=== PATIENT | male | born 1940 | race Caucasian/White ===

== ENCOUNTER 2018-01-17 00:12 | Emergency (ER) | payer MEDICARE, BC ==
[~2018-01-17] VITALS: Ht 175.3 cm; Wt 80.0 kg
[~2018-01-17 00:12] MED LIST: AMLO2.5T PO; APIX5TAB PO; CLOP75TA PO; GABA100C4 PO; LANTUS2P SQ; LISI-515 PO; METF1000 PO; NAME5TAB2 PO; PRAV40TA2 PO; VITA1000 PO; cholesterol med; htn med
[2018-01-17 00:18] VITALS: BP 185/85; PULSE 72; RESP 16; TEMP 98.3; O2SAT 98
[2018-01-17] MEDS ORDERED: diphenhydrAMINE HCL 50 MG/ML VIAL IV PUSH ONE (01:15)
[2018-01-17] MEDS ORDERED: PROCHLORPERAZINE INJ 10 MG/2 ML VIAL IV PUSH ONE (01:15)
--- NOTE | 2018-01-17 03:22 | PD ---
HPI . Headache Chief Complaint: Headache Time Seen by Provider: 01:15 Travel History International Travel<30 days: No Contact w/Intl Traveler<30days: No Traveled to known affect area: No History of Present Illness HPI This patient is brought in by his with chief complaint of headache. The patient has dementia so the history is obtained from his . Onset of headaches was 2 days ago. She treated him at home with an OTC analgesic with relief of this headache yesterday. However, the headache recurred today. She has not given him any further medication. She states that he heard that he needed to come to the hospital because of his headache. She has not noticed any unusual signs or symptoms such as fever, vomiting, focal neurological deficits. She states that he complains that his headache is severe. There have been no obvious modifying factors except that it was relieved yesterday by an OTC analgesic. PFSH Past Medical History Atrial Fibrillation: Yes Anxiety: Yes Depression: Yes Heart Rhythm Problems: Yes Cardiovascular Problems: Yes High Cholesterol: Yes Coronary Artery Disease: Yes Dementia: Yes Diabetes: Yes Diminished Hearing: Yes Hypertension: Yes Neurologic: Yes Triglycerides - High: Yes Past Surgical History Cardiac Surgery: Yes Coronary Artery Bypass Graft: Yes Social History Alcohol Use: No Tobacco Use: No Substance Use: No Allergies-Medications (Allergen,Severity, Reaction): Coded Allergies: sulfamethoxazole (Verified Allergy, Unknown, 01/17/18) trimethoprim (Verified Allergy, Unknown, 01/17/18) Reported Meds & Prescriptions Reported Meds & Active Scripts Active Namenda (Memantine) 5 Mg Tab 5 Mg PO BID 30 Days Reported Lantus Inj (Insulin Glargine) 1,000 Unit/10 Ml Vial 35 Units SQ HS Pravastatin 40 Mg Tab 40 Mg PO DAILY Amlodipine (Amlodipine Besylate) 2.5 Mg Tab 2.5 Mg PO DAILY Lisinopril 20 Mg Tab 20 Mg PO DAILY Eliquis (Apixaban) 5 Mg Tab 5 Mg PO BID Vitamin D-1000 (Cholecalciferol) 1,000 Unit Tab 1,000 Units PO DAILY Clopidogrel (Clopidogrel Bisulfate) 75 Mg Tab 75 Mg PO DAILY Gabapentin 100 Mg Cap 300 Mg PO BID Metformin (Metformin HCl) 1,000 Mg Tab 1,000 Mg PO BIDPC Review of Systems Except as stated in HPI: all other systems reviewed are Neg Physical Exam Exam Limitations: Poor Historian Narrative GENERAL: Elderly man who does not appear to be in any acute distress. SKIN: warm/dry. HEAD: Normocephalic. Atraumatic. Nontender. EYES: Pupils equal and round. No scleral icterus. No injection or drainage. ENT: No nasal bleeding or discharge. Mucous membranes pink and moist. NECK: Trachea midline. Full range of motion without pain.. RESPIRATORY: No accessory muscle use. MUSCULOSKELETAL: No obvious deformities. NEUROLOGICAL: Awake and alert. No obvious cranial nerve deficits. Motor grossly within normal limits. Normal speech. Demented. PSYCHIATRIC: Appropriate mood and affect. Data Data Last Documented VS Vital Signs Date Time Temp Pulse Resp B/P (MAP) Pulse Ox O2 Delivery O2 Flow Rate FiO2 01/17/18 01:19 18 98 01/17/18 00:18 98.3 72 185/85 (118) Room Air Orders Orders ^ Saline Lock (01/17/18 01:15) Diphenhydramine Inj (Benadryl Inj) (01/17/18 01:15) Prochlorperazine Inj (Compazine Inj) (01/17/18 01:15) Ct Brain W/O Iv Contrast(Rout) (01/17/18 03:13) MDM Medical Decision Making Medical Screen Exam Complete: Yes Emergency Medical Condition: Yes Medical Record Reviewed: Yes (patient was admitted here in August and strokelike symptoms. He had a thorough evaluation time and no etiology for his symptoms was found. He was eventually discharged to home.) Differential Diagnosis Differential diagnosis of headache includes but is not limited to migraine, muscle contraction headache, brain tumor, brain bleed Narrative Course This is an elderly, demented patient who is brought in by his with the chief complaint of headache. He did not have any focal neurological deficits and was not running a fever. His neck was supple. He was treated symptomatically with IV Benadryl and Compazine. I have been back to check on him several times. His states that he has continued to complain here head pain. I have subsequently ordered a CT of his head. CT>>1. No acute hemorrhage, mass or evidence of acute infarction. 2. Atrophy and chronic small vessel ischemic change again noted. This patient is now sound asleep. He will be discharged to home. Diagnosis Primary Impression: Headache Qualified Codes: R51 - Headache Patient Instructions: Acute Headache (DC), General Instructions Disposition: DISCHARGE HOME Condition: Stable Eleonora Bone MD Jan 17, 2018 03:21
--- NOTE | 2018-01-17 04:14 | RADRPT ---
EXAM DATE/TIME: 01/17/2018 03:36 [facility] COMPARISON: CT BRAIN W/O CONTRAST, September 03, 2017, 18:30. INDICATIONS : Headache. RADIATION DOSE: 56.35 CTDIvol (mGy) MEDICAL HISTORY : Dementia. Hypertension. Diabetes mellitus type 2.Cardiac disease SURGICAL HISTORY : CABG ENCOUNTER: Initial ACUITY: 1 day PAIN SCALE: 6/10 LOCATION: cranial TECHNIQUE: Multiple contiguous axial images were obtained of the head. Using automated exposure control and adj ustment of the mA and/or kV according to patient size, radiation dose was kept as low as reasonably a chievable to obtain optimal diagnostic quality images. DICOM format image data is available electro nically for review and comparison. FINDINGS: CEREBRUM: The ventricles are normal for age with diffuse moderate atrophic change. Extensive chronic small vess el ischemic changes are again noted without significant change. No evidence of midline shift, mass le jack, hemorrhage or acute infarction. No extra-axial fluid collections are seen. POSTERIOR FOSSA: The cerebellum and brainstem are intact. The 4th ventricle is midline. The cerebellopontine angle i s unremarkable. EXTRACRANIAL: The visualized portion of the orbits is intact. SKULL: The calvaria is intact. No evidence of skull fracture. CONCLUSION: 1. No acute hemorrhage, mass or evidence of acute infarction. 2. Atrophy and chronic small vessel ischemic change again noted. Reinaldo Patel MD on January 17, 2018 at 4:10 Board Certified Radiologist. This report was verified electronically.
== END 2018-01-17 05:34 | disposition home or self-care (01) ==
LOC: NEPC 00:12
DX: R51 Headache (principal); I10 Essential (primary) hypertension; F03.90 Unspecified dementia, unspecified severity, without behavioral disturbance, psychotic disturbance, mood disturbance, and anxiety; I48.91 Unspecified atrial fibrillation; I25.10 Atherosclerotic heart disease of native coronary artery without angina pectoris; E78.2 Mixed hyperlipidemia; E11.9 Type 2 diabetes mellitus without complications; F32.9 Major depressive disorder, single episode, unspecified; F41.9 Anxiety disorder, unspecified; Z95.1 Presence of aortocoronary bypass graft; Z88.2 Allergy status to sulfonamides; Z79.84 Long term (current) use of oral hypoglycemic drugs; Z79.899 Other long term (current) drug therapy; Z79.4 Long term (current) use of insulin
CPT/HCPCS: 70450; 96374; 96375; 99284; J0780; J1200